=== PATIENT | male | born 1955 | race Caucasian/White ===

== ENCOUNTER 2017-08-06 09:03 | Day surgery (SDC) | payer OTHER ==
[2017-08-06] MEDS ORDERED: PROPOFOL 500 MG/50 ML EMU IV ONE (09:54)
[2017-08-06] MEDS ORDERED: PROPOFOL 10 MG/ML EMU IV ONE ×2 (10:08→10:19)
[2017-08-06 11:23] VITALS: BP 121/84; PULSE 96; RESP 20; TEMP 97.5; O2SAT 97
== END 2017-08-06 12:00 | disposition home or self-care (01) | DRG 951 ==
LOC: SURG 09:03
PROVIDERS: ATTEND Surgery
DX: Z12.11 Encounter for screening for malignant neoplasm of colon (principal); K57.32 Diverticulitis of large intestine without perforation or abscess without bleeding; Z86.010 Personal history of colon polyps; K63.5 Polyp of colon; D12.5 Benign neoplasm of sigmoid colon
CPT/HCPCS: 99001; J2704